=== PATIENT | female | born 1955 ===

== ENCOUNTER 2018-06-26 13:33 | Emergency (ER) | payer BC ==
[~2018-06-26] VITALS: Ht 165.1 cm; Wt 98.4 kg
[~2018-06-26 13:33] MED LIST: ALBU90OI6 INH; CONTRAVE ER 8-1 EACH PO; FLUSAL2505 INH; HYDCHL25 PO; LOSA50 PO; METO10 PO; MONT10T PO; PANT40 PO; POTA8 PO; PRAV20 PO; RANI150 PO; Robaxin500 MG PO; TIOT18 INH; TRAZ150T57 PO
[2018-06-26 15:24] LABS: BASOPHILS ABSOLUTE AUTO 0.04 K/mm3 (0.00-0.23); BASOPHILS PERCENT AUTO 0 % (0-2); EOSINOPHILS ABSOLUTE AUTO 0.06 K/mm3 (0.00-0.68); EOSINOPHILS PERCENT AUTO 0 % (0-6); Hemoglobin 14.2 g/dL (11.5-16.0); IMMATURE GRAN ABSOLUTE AUTO 0.05 K/mm3 (0.00-0.10); IMMATURE GRAN PERCENT AUTO 0 % (0-1); LYMPHOCYTES ABSOLUTE AUTO 3.31 K/mm3 (0.84-5.20); LYMPHOCYTES PERCENT AUTO 22 % (21-46); MONOCYTES ABSOLUTE AUTO 1.37 K/mm3 (0.16-1.47); MONOCYTES PERCENT AUTO 9 % (4-13); Mean Corpuscular HGB 31.8 pg (26.0-34.0); Mean Corpuscular HGB Conc 31.6 g/dL (31.5-36.5); Mean Corpuscular Volume 101 fL (80-100); Mean Platelet Volume 9.1 fL (9.1-12.4); NEUTROPHILS ABSOLUTE AUTO 10.26 K/mm3 (1.96-9.15); NEUTROPHILS PERCENT AUTO 68 % (41-73); Platelet Count 384 K/mm3 (150-400); RDW Coefficient Variation 13.1 % (11.7-14.2); RDW Standard Deviation 48.9 fL (35.1-46.3); Red Blood Cell Count 4.46 M/mm3 (3.80-5.20); White Blood Cell Count 15.09 K/mm3 (4.00-11.30)
[2018-06-26 15:44] LABS: Alanine Aminotransfer (ALT/SGP 29 U/L (12-78); Albumin, Blood 3.1 g/dL (3.4-5.0); Albumin/Globulin Ratio 0.9 (0.8-1.8); Alk Phos 67 U/L (50-136); Anion Gap 6 mmol/L (6-16); Aspartate Aminotrans (AST/SGOT 16 U/L (12-37); Bilirubin, Total 0.3 mg/dL (0.1-1.0); Blood Urea Nitrogen 21 mg/dL (8-24); CO2, Blood 33 mmol/L (21-32); Calcium, Blood 8.7 mg/dL (8.5-10.1); Chloride, Blood 102 mmol/L (98-108); Creatinine, Blood 0.96 mg/dL (0.40-1.00); Globulin, Blood 3.3 g/dL (2.2-4.0); Glomerular Filtration Rate >60 (60-); Glucose, Blood 106 mg/dL (70-99); Potassium, Blood 3.8 mmol/L (3.5-5.5); Sodium, Blood 141 mmol/L (136-145); Total Protein, Blood 6.4 g/dL (6.4-8.2)
[2018-06-26] MEDS ORDERED: Prednisone20 MG PO (16:37)
== END 2018-06-26 16:58 | disposition home or self-care (01) ==
LOC: ER 13:33
PROVIDERS: Physician Assistant
DX: J45.909 Unspecified asthma, uncomplicated (principal); Z88.8 Allergy status to other drugs, medicaments and biological substances; Z91.048 Other nonmedicinal substance allergy status; Z79.899 Other long term (current) drug therapy; J44.9 Chronic obstructive pulmonary disease, unspecified; Z79.52 Long term (current) use of systemic steroids; Z87.891 Personal history of nicotine dependence
CPT/HCPCS: 36415; 71046; 80053; 85025; 93005; 93010; 99284-25

== ENCOUNTER 2018-06-30 11:11 | Observation (INO) | payer BC ==
[~2018-06-30] VITALS: Ht 165.1 cm; Wt 107.0 kg
[~2018-06-30 11:11] MED LIST changes: +Prednisone20 MG PO
[2018-06-30 12:12] LABS: BASOPHILS ABSOLUTE AUTO 0.02 K/mm3 (0.00-0.23); BASOPHILS PERCENT AUTO 0 % (0-2); EOSINOPHILS PERCENT AUTO 0 % (0-6); Hematocrit 46.5 % (33.0-51.0); Hemoglobin 14.8 g/dL (11.5-16.0); IMMATURE GRAN ABSOLUTE AUTO 0.07 K/mm3 (0.00-0.10); IMMATURE GRAN PERCENT AUTO 0 % (0-1); LYMPHOCYTES ABSOLUTE AUTO 0.59 K/mm3 (0.84-5.20); LYMPHOCYTES PERCENT AUTO 4 % (21-46); MONOCYTES ABSOLUTE AUTO 0.38 K/mm3 (0.16-1.47); MONOCYTES PERCENT AUTO 2 % (4-13); Mean Corpuscular HGB 31.9 pg (26.0-34.0); Mean Corpuscular HGB Conc 31.8 g/dL (31.5-36.5); Mean Corpuscular Volume 100 fL (80-100); Mean Platelet Volume 9.1 fL (9.1-12.4); NEUTROPHILS ABSOLUTE AUTO 15.05 K/mm3 (1.96-9.15); NEUTROPHILS PERCENT AUTO 93 % (41-73); Platelet Count 374 K/mm3 (150-400); Red Blood Cell Count 4.64 M/mm3 (3.80-5.20); White Blood Cell Count 16.11 K/mm3 (4.00-11.30)
[2018-06-30 12:23] LABS: Alanine Aminotransfer (ALT/SGP 32 U/L (12-78); Albumin, Blood 3.3 g/dL (3.4-5.0); Alk Phos 74 U/L (50-136); Anion Gap 8 mmol/L (6-16); Aspartate Aminotrans (AST/SGOT 17 U/L (12-37); Bilirubin, Total 0.6 mg/dL (0.1-1.0); Blood Urea Nitrogen 13 mg/dL (8-24); Bun/Creatinine Ratio 17.2 (12.0-20.0); CO2, Blood 31 mmol/L (21-32); Calcium, Blood 8.4 mg/dL (8.5-10.1); Chloride, Blood 100 mmol/L (98-108); Creatinine, Blood 0.75 mg/dL (0.40-1.00); Globulin, Blood 3.3 g/dL (2.2-4.0); Glomerular Filtration Rate >60 (60-); Glucose, Blood 139 mg/dL (70-99); Sodium, Blood 139 mmol/L (136-145); Total Protein, Blood 6.6 g/dL (6.4-8.2); Troponin I 0.058 ng/mL (0.000-0.040)
[2018-06-30] MEDS ORDERED: ALBU3IS INH (15:39)
[2018-07-01 05:01] LABS: BASOPHILS ABSOLUTE AUTO 0.01 K/mm3 (0.00-0.23); BASOPHILS PERCENT AUTO 0 % (0-2); EOSINOPHILS PERCENT AUTO 0 % (0-6); Hematocrit 43.2 % (33.0-51.0); IMMATURE GRAN ABSOLUTE AUTO 0.04 K/mm3 (0.00-0.10); IMMATURE GRAN PERCENT AUTO 0 % (0-1); LYMPHOCYTES ABSOLUTE AUTO 1.44 K/mm3 (0.84-5.20); LYMPHOCYTES PERCENT AUTO 14 % (21-46); MONOCYTES ABSOLUTE AUTO 0.83 K/mm3 (0.16-1.47); MONOCYTES PERCENT AUTO 8 % (4-13); Mean Corpuscular HGB 31.9 pg (26.0-34.0); Mean Corpuscular HGB Conc 32.4 g/dL (31.5-36.5); Mean Corpuscular Volume 98 fL (80-100); Mean Platelet Volume 9.3 fL (9.1-12.4); NEUTROPHILS ABSOLUTE AUTO 7.87 K/mm3 (1.96-9.15); NEUTROPHILS PERCENT AUTO 77 % (41-73); Platelet Count 318 K/mm3 (150-400); RDW Coefficient Variation 12.7 % (11.7-14.2); RDW Standard Deviation 46.5 fL (35.1-46.3); Red Blood Cell Count 4.39 M/mm3 (3.80-5.20); White Blood Cell Count 10.19 K/mm3 (4.00-11.30)
[2018-07-01 05:26] LABS: Anion Gap 8 mmol/L (6-16); Blood Urea Nitrogen 18 mg/dL (8-24); Bun/Creatinine Ratio 21.1 (12.0-20.0); CO2, Blood 32 mmol/L (21-32); Calcium, Blood 8.5 mg/dL (8.5-10.1); Chloride, Blood 100 mmol/L (98-108); Creatinine, Blood 0.85 mg/dL (0.40-1.00); Glomerular Filtration Rate >60 (60-); Glucose, Blood 132 mg/dL (70-99); Potassium, Blood 3.9 mmol/L (3.5-5.5); Sodium, Blood 140 mmol/L (136-145)
--- NOTE | 2018-07-01 07:15 | NUR ---
complaine of sob but no chest pain, call light in reach, tele proadcasting, saline locked, room air, sbar report given to returning day shift
--- NOTE | 2018-07-01 18:09 | NUR ---
OXYGEN SATURATION THIS RN HAD PT AMBULATE IN FRIEDMAN 150 FEET ON ROOM AIR AND PT'S OXYGEN SATURATION STAYED BETWEEN 92-94%. NO SHORTNESS OF BREATH NOTED WHEN PT AMBULATED. PT CONTINUES TO BE ON ROOM AIR WITH NO COMPLAINTS. CALL LIGHT IN REACH.
--- NOTE | 2018-07-01 18:16 | NUR ---
SHIFT SUMMARY PT HAD FIRST PART OF STRESS TEST THIS AFTERNOON (RESTING) AND WILL HAVE THE 2ND PART TOMORROW AFTERNOON. PT HAS HAD NO COMPLAINTS OF CHEST PAIN THIS SHIFT. PT CONTINUES TO BE ON ROOM AIR AND HAS BEEN BREATHING EASIER THIS EVENING WITH EXERTION. PT AMBULATED IN HALLS ON ROOM AIR AND NO CHANGES WITH HER OXYGEN SATURATION. PT INDEPENDENT IN ROOM. NO ACUTE CHANGES THIS SHIFT. WILL CONTINUE TO MONITOR AND REPORT TO ONCOMING RN. CALL LIGHT IN REACH.
--- NOTE | 2018-07-02 07:17 | NUR ---
a+o able to make needs known, NPO since 399 for procedure, saline locked, room air, able to ambulate to bathroom, walking rounds completed with oncoming day shift
[2018-07-02] MEDS ORDERED: GABA300 PO (08:58)
[2018-07-02] MEDS ORDERED: CHOL10002 PO (08:59)
--- NOTE | 2018-07-02 14:36 | NUR ---
lexiscan 0.4mg given iv @1430. MAR WAS NOT POPULATING MEDICATIONS PULLED IN [facility].
--- NOTE | 2018-07-02 17:14 | NUR ---
SHIFT SUMMARY DR. SHAFFER WANTS TO KEEP PT OVERNIGHT. POSSIBLE DC TOMORROW. PT STATES HER BREATHING "FEELS BETTER" THAN THIS MORNING. NO OTHER CHANGES IN ASSESSMENT AT THIS TIME. VSS. PT HAS STRESS TEST COMPLETED TODAY. WILL CONTINUE TO MONITOR PT UNTIL TURNOVER IS COMPLETE. PT AWARE OF PLAN OF CARE.
--- NOTE | 2018-07-03 07:17 | NUR ---
ready to go home, up adlib, no chest pain, call light in reach, saline locked, room air, walking rounds completed with day staff
[2018-07-03] MEDS ORDERED: DULERA 200 MCG/13 GM INH (08:53)
[2018-07-03] MEDS ORDERED: Micro-K10 MEQ PO (08:57)
[2018-07-03] MEDS ORDERED: ACET325 PO (09:04)
[2018-07-03] MEDS ORDERED: PRED20 (09:04)
[2018-07-03] MEDS ORDERED: ASPI81CH PO (09:04)
[2018-07-03] MEDS ORDERED: GUAI600T33 PO (09:05)
[2018-07-03] MEDS ORDERED: AMLO5 PO (09:05)
[2018-07-03] MEDS ORDERED: FURO20 PO (09:05)
--- NOTE | 2018-07-03 10:52 | NUR ---
1002 PT DISCHARGED HOME VIA PERSONAL VEHICLE. ESCORTED TO FACILITY ENTRANCE VIA VOLUNTEER W/C ESCORT. IV REMOVED. D/C PAPERWORK REVIEWED WITH PT AND COPY PROVIDED. NEW RX FAXED TO [facility] PER PT REQUEST. NO NEW CHANGES OR CONCERNS.
== END 2018-07-03 10:02 | disposition home or self-care (01) ==
LOC: ER 11:11 → MEDS 11:12 → ER 13:30 → MEDS 13:30 → ENPENDDIS 07-03 08:30 → MEDS 07-03 10:02
PROVIDERS: Emergency Medicine; ADMIT Internal Medicine
DX: I24.9 Acute ischemic heart disease, unspecified (principal); J44.1 Chronic obstructive pulmonary disease with (acute) exacerbation; I11.0 Hypertensive heart disease with heart failure; I50.9 Heart failure, unspecified; E78.5 Hyperlipidemia, unspecified; E66.9 Obesity, unspecified; Z87.01 Personal history of pneumonia (recurrent); Z87.891 Personal history of nicotine dependence; Z88.8 Allergy status to other drugs, medicaments and biological substances; Z68.35 Body mass index [BMI] 35.0-35.9, adult
CPT/HCPCS: 36415; 71046; 78452; 80048; 80053; 83880; 84443; 84484; 85025; 93005; 93010; 93017; 93306; 94640; 94664; 94667; 94760; 94761; 94762; 96372; 96374; 96376; 98960; 99285-25; A9500; G0378; J0706; J1650; J1940; J2785

== ENCOUNTER 2019-01-26 07:58 | Day surgery (SDC) | payer BC ==
[~2019-01-26 07:58] MED LIST changes: +ACET325 PO; +ALBU3IS INH; +AMLO5 PO; +ASPI81CH PO; +CHOL10002 PO; +DULERA 200 MCG/13 GM INH; +FURO20 PO; +GABA300 PO; +GUAI600T33 PO; +Micro-K10 MEQ PO; +PRED20
[2019-02-06 10:01] LABS: Performing Lab SYMBIODX; Test Name FISH HER2
[2019-04-06] MEDS ORDERED: OMEPRAZOLE20 MG PO (13:47)
[2019-04-06] MEDS ORDERED: DILT180 PO (13:48)
[2019-04-06] MEDS ORDERED: HYDCHL25 PO (13:48)
[2019-04-06] MEDS ORDERED: MELO7.5 PO (13:49)
[2019-04-06] MEDS ORDERED: CITA20 PO (13:49)
[2019-04-06] MEDS ORDERED: TIOT18 INH (13:49)
== END 2019-01-26 22:57 | disposition home or self-care (01) ==
LOC: MOI MAM 07:58
PROVIDERS: Internal Medicine
DX: C50.411 Malignant neoplasm of upper-outer quadrant of right female breast (principal)
CPT/HCPCS: 19083; 77065; 88305; 88360; 88374; A4648; G0279

== ENCOUNTER 2019-04-03 08:04 | Day surgery (SDC) | payer BC ==
[2019-04-06] MEDS ORDERED: OMEPRAZOLE20 MG PO (13:47)
[2019-04-06] MEDS ORDERED: DILT180 PO (13:48)
[2019-04-06] MEDS ORDERED: HYDCHL25 PO (13:48)
[2019-04-06] MEDS ORDERED: TIOT18 INH (13:49)
[2019-04-06] MEDS ORDERED: MELO7.5 PO (13:49)
[2019-04-06] MEDS ORDERED: CITA20 PO (13:49)
== END 2019-04-03 22:53 | disposition home or self-care (01) ==
LOC: MOI US 08:04
DX: C50.411 Malignant neoplasm of upper-outer quadrant of right female breast (principal)
CPT/HCPCS: 19285; 77065

== ENCOUNTER 2019-04-10 08:16 | Day surgery (SDC) | payer BC ==
[~2019-04-10] VITALS: Ht 165.1 cm; Wt 94.1 kg
[~2019-04-10 08:16] MED LIST changes: +CITA20 PO; +DILT180 PO; +MELO7.5 PO; +OMEPRAZOLE20 MG PO
--- NOTE | 2019-04-10 09:42 | NUR ---
Ambulatory in Day Surgery. Surgical site prepped with 2% Chlorhexidine cloth wipe. Patient reports completing Chlorhexadine shower X2 prior to admission to hospital. Patient States Post-Procedure ride home has been arranged. Pre-Op teaching done. Pt verbalizes understanding. Patient confirms NPO status and agrees with scheduled surgery. History, Chart, Medications and Allergies reviewed before start of procedure. Lungs clear T/O to Auscultation.
--- NOTE | 2019-04-10 09:43 | NUR ---
TO [employer] FOR PROCEDURE
--- NOTE | 2019-04-10 10:17 | NUR ---
"DAY SURGERY RN | REPORT FROM CATRACHO MEADOWS. [facility]."
--- NOTE | 2019-04-10 11:33 | NUR ---
"DAY SURGERY RN | TO OR PATIENT WAS UP TO VOID. NO ISSUES. TO OR."
--- NOTE | 2019-04-10 13:43 | NUR ---
TOOK CARE OF PT TILL JEANNE GABRIEL TOOK REPORT.
--- NOTE | 2019-04-10 14:20 | NUR ---
RECIEVED PATIENT AND REPORT FROM ZAINA GABRIEL RN. PATIENT NEEDING REMINDERS TO TAKE DEEP BREATHS TO KEEP SAT ABOVE 90% SAT GOES TO 93-95 WITH DEEP BREATHS ON ROOM AIR BUT DROPS PATIENT RELAXES
--- NOTE | 2019-04-10 14:55 | NUR ---
visitors brought to bedside patient reminded to deep breathe and cough and clear
--- NOTE | 2019-04-10 14:56 | NUR ---
patients sat continues to drop below 90 % and she continues to need reminders to deep breath. placed on 2 liters 02 at 1458
--- NOTE | 2019-04-10 15:03 | NUR ---
RECEIVED REPORT AND ASSUMED CARE OF PT FROM FADY MEADOWS. PT WHEEZING. ENCOURAGED DBC. SHE RECEIVED A UDN TX IN PACU. LET HER USE HER INHALER. WILL CONTINUE TO MONITOR.
--- NOTE | 2019-04-10 15:49 | NUR ---
PATIENTS SAT HAS MAINTAINED ABOVE 90 PERCENT PATINET READY TO GO HOME, GIVNE CLOTHES AND PATEIENT DRESSED AND IV DISCONTINUED AND PATIENT WHEELED OUT IN WC TO PATIENT ADMISSION INTERENCE AND ASSISTED INTO CAR WITH ALL BELONGINGS.
== END 2019-04-10 23:38 | disposition home or self-care (01) ==
LOC: NM 08:16 → ORSCMMR 08:16 → NM 09:30
PROVIDERS: Surgery
PROC: 07B50ZX Excision of Right Axillary Lymphatic, Open Approach, Diagnostic (ICD-10-PCS; principal; 2019-04-10 10:30)
PROC: 0HBT0ZZ Excision of Right Breast, Open Approach (ICD-10-PCS; principal; 2019-04-10 10:30)
DX: C50.411 Malignant neoplasm of upper-outer quadrant of right female breast (principal); Z17.0 Estrogen receptor positive status [ER+]; C77.3 Secondary and unspecified malignant neoplasm of axilla and upper limb lymph nodes; I10 Essential (primary) hypertension; I50.9 Heart failure, unspecified; J44.9 Chronic obstructive pulmonary disease, unspecified; Z87.891 Personal history of nicotine dependence; Z79.899 Other long term (current) drug therapy; E66.9 Obesity, unspecified; Z68.34 Body mass index [BMI] 34.0-34.9, adult
CPT/HCPCS: 38792; 76098; 88307; A9270-GY; A9520; J0690; J1100; J2250; J2405; J2704; J3010; J7120; Q9968

== ENCOUNTER 2019-05-06 06:57 | Day surgery (SDC) | payer BC ==
[~2019-05-06] VITALS: Ht 165.1 cm; Wt 95.9 kg
[2019-05-06] MEDS ORDERED: FLUT1DIS5 INH (07:25)
--- NOTE | 2019-05-06 07:34 | NUR ---
PT ADMITTED TO [facility]. AGREES WITH PLANNED SURGERY. LUNG SOUNDS DIMINSHED T/O. PT STATES SHE IS FEELING AT BASELINE FOR RESPIRATORY STATUS. C/O CHRONIC LEFT HIP PAIN WITH AMBULATION.
--- NOTE | 2019-05-06 09:23 | NUR ---
IV SITE IN RIGHT FA INFUSING WELL BUT PATIENT NOT RESPONDING APPROPRIATELY TO INDUCTION MEDS, IV SITE CHANGED
--- NOTE | 2019-05-06 10:44 | NUR ---
"DAY SURGERY RN | DISCHARGE VSS. A/O. DENIES PAIN AND NAUSEA. NO ISSUES. SITE C/D/I. DISCHARGE INSTRUCTIONS AND RX GIVEN TO PATIENT WITH FAMILY PRESENT. TAKEN IN WHEELCHAIR TO FRONT ENTRANCE BY VOLUNTEER."
== END 2019-05-06 23:00 | disposition home or self-care (01) ==
LOC: ORSCMMR 06:57 → ORD 08:30 → ORSCMMR 23:00
PROVIDERS: Surgery
PROC: 0JH60WZ Insertion of Totally Implantable Vascular Access Device into Chest Subcutaneous Tissue and Fascia, Open Approach (ICD-10-PCS; principal; 2019-05-06 08:30)
DX: C50.919 Malignant neoplasm of unspecified site of unspecified female breast (principal); Z17.0 Estrogen receptor positive status [ER+]; J44.9 Chronic obstructive pulmonary disease, unspecified; J45.909 Unspecified asthma, uncomplicated; I10 Essential (primary) hypertension; E78.5 Hyperlipidemia, unspecified; K21.9 Gastro-esophageal reflux disease without esophagitis; Z79.899 Other long term (current) drug therapy; Z87.891 Personal history of nicotine dependence
CPT/HCPCS: 77001; C1788; J0690; J1100; J1642; J2250; J2405; J2704; J3010; J7120

== ENCOUNTER → 2019-06-08 | Outpatient (CLI) | payer BC ==
[~2019-06-08] MED LIST changes: +FLUT1DIS5 INH
[2019-06-08 10:24] LABS: BASOPHILS ABSOLUTE AUTO 0.07 K/mm3 (0.00-0.23); BASOPHILS PERCENT AUTO 1 % (0-2); EOSINOPHILS ABSOLUTE AUTO 0.01 K/mm3 (0.00-0.68); EOSINOPHILS PERCENT AUTO 0 % (0-6); Hematocrit 37.8 % (33.0-51.0); Hemoglobin 12.2 g/dL (11.5-16.0); IMMATURE GRAN PERCENT AUTO 3 % (0-1); LYMPHOCYTES ABSOLUTE AUTO 1.11 K/mm3 (0.84-5.20); LYMPHOCYTES PERCENT AUTO 10 % (21-46); MONOCYTES ABSOLUTE AUTO 0.82 K/mm3 (0.16-1.47); MONOCYTES PERCENT AUTO 7 % (4-13); Mean Corpuscular HGB 32.5 pg (26.0-34.0); Mean Corpuscular HGB Conc 32.3 g/dL (31.5-36.5); Mean Corpuscular Volume 101 fL (80-100); Mean Platelet Volume 9.5 fL (9.1-12.4); NEUTROPHILS ABSOLUTE AUTO 9.02 K/mm3 (1.96-9.15); NEUTROPHILS PERCENT AUTO 80 % (41-73); NRBC ABSOLUTE 0.03 K/mm3 (0.00-0.02); NRBC Auto 0.3 /100 WBC (0.0-0.2); Platelet Count 312 K/mm3 (150-400); RDW Coefficient Variation 17.2 % (11.7-14.2); RDW Standard Deviation 59.2 fL (35.1-46.3); Red Blood Cell Count 3.75 M/mm3 (3.80-5.20); White Blood Cell Count 11.33 K/mm3 (4.00-11.30)
[2019-06-08 10:40] LABS: Alanine Aminotransfer (ALT/SGP 20 U/L (12-78); Albumin, Blood 3.1 g/dL (3.4-5.0); Alk Phos 85 U/L (50-136); Anion Gap 4 mmol/L (6-16); Aspartate Aminotrans (AST/SGOT 15 U/L (12-37); Bilirubin, Total 0.4 mg/dL (0.1-1.0); Blood Urea Nitrogen 7 mg/dL (8-24); Bun/Creatinine Ratio 8.7 (12.0-20.0); CO2, Blood 33 mmol/L (21-32); Calcium, Blood 8.9 mg/dL (8.5-10.1); Chloride, Blood 102 mmol/L (98-108); Creatinine, Blood 0.81 mg/dL (0.40-1.00); Glomerular Filtration Rate >60 (60-); Glucose, Blood 113 mg/dL (70-99); Potassium, Blood 3.4 mmol/L (3.5-5.5); Sodium, Blood 139 mmol/L (136-145); Total Protein, Blood 6.1 g/dL (6.4-8.2)
== END | disposition home or self-care (01) ==
LOC: LAB 09:55 → LAB SHORT 09:55
PROVIDERS: Internal Medicine Hematology & Oncology
DX: C50.919 Malignant neoplasm of unspecified site of unspecified female breast (principal)
CPT/HCPCS: 80053; 85025

== ENCOUNTER 2020-03-27 16:48 | Emergency (ER) | payer BC ==
[~2020-03-27] VITALS: Ht 165.1 cm; Wt 87.1 kg
[2020-03-27] MEDS ORDERED: DERMACINRX5000 UNI1 PO (17:11)
[2020-03-27] MEDS ORDERED: ANASTROZOLE 1MG TAB (17:15)
[2020-03-27] MEDS ORDERED: ANASTROZOLE 1MG TAB PO (17:16)
== END 2020-03-27 19:44 | disposition home or self-care (01) ==
LOC: ER 16:48
DX: S42.292A Other displaced fracture of upper end of left humerus, initial encounter for closed fracture (principal); S43.015A Anterior dislocation of left humerus, initial encounter; J44.9 Chronic obstructive pulmonary disease, unspecified; I10 Essential (primary) hypertension; K21.9 Gastro-esophageal reflux disease without esophagitis; Z88.8 Allergy status to other drugs, medicaments and biological substances; Z79.899 Other long term (current) drug therapy; Z87.891 Personal history of nicotine dependence; W01.0XXA Fall on same level from slipping, tripping and stumbling without subsequent striking against object, initial encounter; Y92.000 Kitchen of unspecified non-institutional (private) residence as the place of occurrence of the external cause
CPT/HCPCS: 23655; 36415; 73020; 99283-25; A9270; J2704; J7030

== ENCOUNTER 2020-09-29 20:02 | Emergency (ER) | payer BC ==
[~2020-09-29] VITALS: Ht 165.1 cm; Wt 90.7 kg
[~2020-09-29 20:02] MED LIST changes: +ANASTROZOLE 1MG TAB; +ANASTROZOLE 1MG TAB PO; +DERMACINRX5000 UNI1 PO
[2020-09-29 20:22] LABS: BASOPHILS ABSOLUTE AUTO 0.06 K/mm3 (0.00-0.23); BASOPHILS PERCENT AUTO 1 % (0-2); EOSINOPHILS ABSOLUTE AUTO 0.11 K/mm3 (0.00-0.68); EOSINOPHILS PERCENT AUTO 1 % (0-6); Hematocrit 41.6 % (33.0-51.0); Hemoglobin 14.3 g/dL (11.5-16.0); IMMATURE GRAN ABSOLUTE AUTO 0.05 K/mm3 (0.00-0.10); IMMATURE GRAN PERCENT AUTO 0 % (0-1); LYMPHOCYTES ABSOLUTE AUTO 2.69 K/mm3 (0.84-5.20); LYMPHOCYTES PERCENT AUTO 23 % (21-46); MONOCYTES ABSOLUTE AUTO 1.45 K/mm3 (0.16-1.47); MONOCYTES PERCENT AUTO 12 % (4-13); Mean Corpuscular HGB Conc 34.4 g/dL (31.5-36.5); Mean Corpuscular Volume 102 fL (80-100); Mean Platelet Volume 8.8 fL (9.1-12.4); NEUTROPHILS ABSOLUTE AUTO 7.49 K/mm3 (1.96-9.15); NEUTROPHILS PERCENT AUTO 63 % (41-73); Platelet Count 328 K/mm3 (150-400); RDW Coefficient Variation 13.6 % (11.7-14.2); RDW Standard Deviation 51.8 fL (35.1-46.3); Red Blood Cell Count 4.08 M/mm3 (3.80-5.20); White Blood Cell Count 11.85 K/mm3 (4.00-11.30)
[2020-09-29 20:36] LABS: Alanine Aminotransfer (ALT/SGP 34 U/L (12-78); Albumin, Blood 3.6 g/dL (3.4-5.0); Albumin/Globulin Ratio 1.2 (0.8-1.8); Alk Phos 74 U/L (50-136); Anion Gap 9 mmol/L (6-16); Aspartate Aminotrans (AST/SGOT 37 U/L (12-37); Bilirubin, Total 0.3 mg/dL (0.1-1.0); Blood Urea Nitrogen 9 mg/dL (8-24); Bun/Creatinine Ratio 12.6 (12.0-20.0); CO2, Blood 28 mmol/L (21-32); Calcium, Blood 8.3 mg/dL (8.5-10.1); Chloride, Blood 95 mmol/L (98-108); Creatinine, Blood 0.72 mg/dL (0.40-1.00); Globulin, Blood 3.1 g/dL (2.2-4.0); Glomerular Filtration Rate >60 (60-); Glucose, Blood 115 mg/dL (70-99); Potassium, Blood 3.7 mmol/L (3.5-5.5); Sodium, Blood 132 mmol/L (136-145); Total Protein, Blood 6.7 g/dL (6.4-8.2); Troponin I <0.015 ng/mL (0.000-0.040)
[2020-09-29 20:38] LABS: International Normalized Ratio 0.91; Prothrombin Time Results 9.8 Sec (9.7-11.5)
[2020-09-29 20:54] LABS: Source, Urine Clean Catch
[2020-09-29 20:58] LABS: Bilirubin, Urine Neg (Neg); Blood, Urine 2+ (Neg); Glucose Qualitative, Urine Neg (Neg); Ketones, Urine Neg (Neg); Leukocyte Esterase, Urine Neg (Neg); Nitrite, Urine Neg (Neg); Protein, Urine 1+ (Neg); Urobilinogen, Urine NORM (Normal)
[2020-09-29 21:08] LABS: Ethanol (Alcohol), Blood, Med 380 mg/dL
[2020-09-29 21:46] LABS: Appearance, Urine Clear (Clear); Color, Urine Yellow (P-Yellow)
[2020-09-29 21:48] LABS: Bacteria Rare /hpf; Squamous Epithelial Cells Rare /hpf (Few); White Blood Cells, Urine 0-2 /hpf (0-5)
[2020-09-29 21:52] LABS: U Amphetamine Screen Not Detected; U Barbituate Screen Not Detected; U Benzodiazapine Screen Not Detected; U Buprenorphine Screen Not Detected; U Cannabinoids Screen Not Detected; U Cocaine Screen Not Detected; U Methadone Screen Not Detected; U Methamphetamine Screen Not Detected; U Opiates Screen Not Detected; U Oxycodone Screen Not Detected; U Phencyclidine Screen Not Detected; U Propoxyphene Screen Not Detected
[2020-09-29 23:25] LABS: Influenza A, PCR NEGATIVE (NEGATIVE); Influenza B, PCR NEGATIVE (NEGATIVE); Resp Syncytial Virus, PCR NEGATIVE (NEGATIVE); SARS-Cov-2 (COVID-19) PCR, MMC NEGATIVE (NEGATIVE)
== END 2020-09-30 00:10 | disposition home or self-care (01) ==
LOC: ER 20:02
PROVIDERS: Emergency Medicine
DX: S00.03XA Contusion of scalp, initial encounter (principal); F10.129 Alcohol abuse with intoxication, unspecified; Z88.8 Allergy status to other drugs, medicaments and biological substances; Z79.899 Other long term (current) drug therapy; W18.30XA Fall on same level, unspecified, initial encounter; Z20.822 Contact with and (suspected) exposure to COVID-19
CPT/HCPCS: 0241U; 70450; 71045; 72125; 80053; 81001; 83605; 83880; 84145; 84484; 85025; 85610; 85730; 86850; 86900; 86901; 93005; 93010; 99285-25; G0480; J7120; P9612

== ENCOUNTER 2020-12-25 09:33 | Emergency (ER) | payer BC ==
[~2020-12-25] VITALS: Ht 165.1 cm; Wt 83.9 kg
[2020-12-25] MEDS ORDERED: HYDR1TAB94 PO (11:06)
[2020-12-25] MEDS ORDERED: CRUTCH2 XX (11:07)
== END 2020-12-25 13:36 | disposition home or self-care (01) ==
LOC: ER 09:33
DX: S90.522A Blister (nonthermal), left ankle, initial encounter (principal); S90.822A Blister (nonthermal), left foot, initial encounter; Z88.8 Allergy status to other drugs, medicaments and biological substances; Z79.899 Other long term (current) drug therapy; W01.0XXA Fall on same level from slipping, tripping and stumbling without subsequent striking against object, initial encounter; Y92.009 Unspecified place in unspecified non-institutional (private) residence as the place of occurrence of the external cause
CPT/HCPCS: 27818; 73600; 73610; 96374-59; 99152; 99284-25; J2704; J3010; J7030

== ENCOUNTER 2021-01-03 11:29 | Inpatient (IN) | payer BC ==
[~2021-01-03] VITALS: Ht 165.1 cm; Wt 83.9 kg
[~2021-01-03 11:29] MED LIST changes: +CRUTCH2 XX; +HYDR1TAB94 PO
[2021-01-03 13:18] LABS: BASOPHILS ABSOLUTE AUTO 0.04 K/mm3 (0.00-0.23); BASOPHILS PERCENT AUTO 0 % (0-2); EOSINOPHILS ABSOLUTE AUTO 0.07 K/mm3 (0.00-0.68); EOSINOPHILS PERCENT AUTO 1 % (0-6); Hematocrit 36.9 % (33.0-51.0); Hemoglobin 12.3 g/dL (11.5-16.0); IMMATURE GRAN ABSOLUTE AUTO 0.04 K/mm3 (0.00-0.10); IMMATURE GRAN PERCENT AUTO 0 % (0-1); LYMPHOCYTES ABSOLUTE AUTO 0.92 K/mm3 (0.84-5.20); LYMPHOCYTES PERCENT AUTO 9 % (21-46); MONOCYTES ABSOLUTE AUTO 1.16 K/mm3 (0.16-1.47); MONOCYTES PERCENT AUTO 11 % (4-13); Mean Corpuscular HGB 34.5 pg (26.0-34.0); Mean Corpuscular HGB Conc 33.3 g/dL (31.5-36.5); Mean Corpuscular Volume 103 fL (80-100); Mean Platelet Volume 8.7 fL (9.1-12.4); NEUTROPHILS ABSOLUTE AUTO 8.62 K/mm3 (1.96-9.15); NEUTROPHILS PERCENT AUTO 79 % (41-73); Platelet Count 469 K/mm3 (150-400); RDW Coefficient Variation 12.5 % (11.7-14.2); RDW Standard Deviation 47.3 fL (35.1-46.3); Red Blood Cell Count 3.57 M/mm3 (3.80-5.20); White Blood Cell Count 10.85 K/mm3 (4.00-11.30)
[2021-01-03 13:39] LABS: Alanine Aminotransfer (ALT/SGP 27 U/L (12-78); Albumin, Blood 3.1 g/dL (3.4-5.0); Albumin/Globulin Ratio 0.9 (0.8-1.8); Alk Phos 66 U/L (50-136); Anion Gap 4 mmol/L (6-16); Aspartate Aminotrans (AST/SGOT 11 U/L (12-37); Bilirubin, Total 0.6 mg/dL (0.1-1.0); Blood Urea Nitrogen 10 mg/dL (8-24); Bun/Creatinine Ratio 12.8 (12.0-20.0); CO2, Blood 33 mmol/L (21-32); Calcium, Blood 9.6 mg/dL (8.5-10.1); Chloride, Blood 97 mmol/L (98-108); Creatinine, Blood 0.78 mg/dL (0.40-1.00); Globulin, Blood 3.6 g/dL (2.2-4.0); Glomerular Filtration Rate >60 (60-); Glucose, Blood 108 mg/dL (70-99); Potassium, Blood 3.2 mmol/L (3.5-5.5); Sodium, Blood 134 mmol/L (136-145); Total Protein, Blood 6.7 g/dL (6.4-8.2)
[2021-01-03] MEDS ORDERED: ANASTROZOLE1 M4 PO (13:55)
[2021-01-03] MEDS ORDERED: BUDESONIDE0.5 MG/25 NEB (13:55)
[2021-01-03] MEDS ORDERED: SPIRIVA RESPIMAT4 G3 INH (13:56)
[2021-01-03] MEDS ORDERED: POTA8 PO (13:56)
[2021-01-03] MEDS ORDERED: ZANTAC-360 (FAM20 MG PO (13:56)
[2021-01-03] MEDS ORDERED: PRAVASTATIN SOD40 MG PO (13:56)
[2021-01-03] MEDS ORDERED: OMEP20ER PO (13:57)
--- NOTE | 2021-01-03 16:02 | NUR ---
ARRIVED FROM ED VIA HENRY IBARRA, DENIES ANY NEED FOR PAIN MEDS AT THIS TIME, LLE ELEVATED ON PILLOWS, <3 SEC CAP REFILL ON LLE TOES, SPLINT AND JAIRO WRAP IN PLACE ON LLE, ABLE TO WIGGLE LLE TOES, NPO FOR NOW.
--- NOTE | 2021-01-03 17:34 | NUR ---
RESTING IN BED, DENIES ANY NEED FOR PAIN MEDS AT THIS TIME, PT WAITING TO GO TO THE OR, NO ACUTE CHANGES THIS SHIFT.
--- NOTE | 2021-01-04 04:09 | NUR ---
SHIFT SUMMARY POD 1 L ANKLE EXTERNAL FIXATION WITH WOUND VAC. DRESSING REMAINS CDI. PT HAD A SPINAL AND NOW HAS FULL SENSATION TO BLE. ABLE TO WIGGLE TOES TO LEFT FOOT AND CAP REFILL <3. PT DENIES N/T. PT IS NWB TO LLE. STRAIGHT CATH X1 EARLY THIS SHIFT. PT IS NOW SPONTANEOUSLY VOIDING USING BEDPAN. PT VERBALIZED SHE WANTS TO GET OOB NEXT TIME FOR BRP. PT REPORTS TOLERABLE PAIN TO LLE. ELEVATED ON PILLOWS. WEARS 2L O2 VIA NC AT NOC AT BASELINE. IVF INFUSING PER ORDERS. PT DID JARED PO UPON ARRIVAL TO UNIT. USES CALL LIGHT APPROPRIATELY.
[2021-01-04 04:30] LABS: BASOPHILS ABSOLUTE AUTO 0.01 K/mm3 (0.00-0.23); BASOPHILS PERCENT AUTO 0 % (0-2); EOSINOPHILS PERCENT AUTO 0 % (0-6); Hematocrit 33.3 % (33.0-51.0); Hemoglobin 11.1 g/dL (11.5-16.0); IMMATURE GRAN ABSOLUTE AUTO 0.04 K/mm3 (0.00-0.10); IMMATURE GRAN PERCENT AUTO 0 % (0-1); LYMPHOCYTES ABSOLUTE AUTO 0.37 K/mm3 (0.84-5.20); LYMPHOCYTES PERCENT AUTO 4 % (21-46); MONOCYTES ABSOLUTE AUTO 0.13 K/mm3 (0.16-1.47); MONOCYTES PERCENT AUTO 1 % (4-13); Mean Corpuscular HGB 34.7 pg (26.0-34.0); Mean Corpuscular HGB Conc 33.3 g/dL (31.5-36.5); Mean Corpuscular Volume 104 fL (80-100); NEUTROPHILS ABSOLUTE AUTO 10.04 K/mm3 (1.96-9.15); NEUTROPHILS PERCENT AUTO 95 % (41-73); Platelet Count 411 K/mm3 (150-400); RDW Coefficient Variation 12.2 % (11.7-14.2); RDW Standard Deviation 46.8 fL (35.1-46.3); White Blood Cell Count 10.59 K/mm3 (4.00-11.30)
[2021-01-04 04:54] LABS: Anion Gap 4 mmol/L (6-16); Blood Urea Nitrogen 13 mg/dL (8-24); Bun/Creatinine Ratio 15.2 (12.0-20.0); CO2, Blood 29 mmol/L (21-32); Calcium, Blood 8.5 mg/dL (8.5-10.1); Chloride, Blood 101 mmol/L (98-108); Creatinine, Blood 0.86 mg/dL (0.40-1.00); Glomerular Filtration Rate >60 (60-); Glucose, Blood 196 mg/dL (70-99); Potassium, Blood 4.6 mmol/L (3.5-5.5); Sodium, Blood 134 mmol/L (136-145)
[2021-01-04 05:33] LABS: BAND PERCENT MAN 1 % (0-8); BASOPHILS PERCENT MAN 0 % (0-2); EOSINOPHILS PERCENT MAN 0 % (0-6); MONOCYTES ABSOLUTE MAN 0.21 K/mm3 (0.16-1.47); MONOCYTES PERCENT MAN 2 % (4-13); NEUTROPHILS ABSOLUTE MAN 10.37 K/mm3 (1.96-9.15); SEG NEUTROPHILS PERCENT MAN 97 % (41-73); TOTAL CELLS COUNTED 100
--- NOTE | 2021-01-04 14:19 | NUR ---
SHIFT SUMMARY: POD 1 I&D LEFT ANKLE WITH EXTERNAL FIXATION AND WOUND VAC PATIENT IS ALERT AND ORIENTED X4. VS ARE WNL AND IS ON RA. PATIENT DENIES PAIN AT THIS TIME AND HAS DENIED PAIN MEDICATIONS. PATIENT IS ABLE TO MOVE LEG BUT IS NOT ABLE TO WIGGLE TOES. SHE IS ABLE TO FEEL TOUCH AND THE LEFT FOOT IS WARM AND PINK. PATIENT IS ABLE TO VOID AT BEDSIDE COMMODE. ENCOURAGING BOWEL SUPPORT FOR A BM. SHE WORKED WITH PT SO FAR TODAY AND IS A SBA WITH FWW AND GAIT BELT. PATIENT NEEDS TO BE REMINDED SHE IS NON WT BEARING ON THE LEFT LEG. SHE IS TOLERATING PO INTAKE. CALLS APPROPRIATELY. CALL LIGHT WITHIN REACH. PATIENT IS CURRENTLY SITTING IN CHAIR WITH LEGS ELEVATED. THE PLAN WILL BE TO EVENTUALLY DISCHARGE TO A SNF WHEN POSSIBLE.
--- NOTE | 2021-01-05 04:42 | NUR ---
SHIFT SUMMARY POD2 I&D, EXTERNAL FIXATION AND WOUND VACC PLACEMENT WITH DR. MATIAS. VSS. AOX4. PT HAS BEEN AMBULATING TO [facility] WITH 1 PERSON MIN ASSIST, FWW AND GB. TOLERATING MOVEMENT, REPORTS PAIN INTERMITTENTLY. PAIN MANAGED WITH 1 TAB NORCO. NWB ON LLE. PT REMAINS TO HAVE NUMBNESS ON LEFT TOP FOOT AND TOES BUT ABLE TO MOVE BLE. CAP REFILL WNL. VOIDS ADEQUATELY WITHOUT ANY DIFFICULTY. TOLERATING PO INTAKE. DENIES NAUSEA AND VOMITING. PT HAS PASSED FLATUS. CALL LIGHT WITHIN REACH. WILL PROVIDE REPORT TO ONCOMING AM NURSE.
--- NOTE | 2021-01-05 10:07 | NUR ---
LEFT TOE NUMBNESS PATIENT REPORTS NUMBNESS CONTINUES TO LEFT TOES. UNABLE TO MOVE TOES AT ALL. TOES ARE WARM, CAP REFILL BRISK, LESS THAN [address] LARSEN WHO ASKED ME TO SPEAK WITH ANESTHESIOLOGY TO GET THEIR OPINION. CALLED DR SILVA WHO STATED THE NERVE BLOCK MAY STILL BE IN EFFECT FOR UP TO 48 HOURS. 48 HOURS WILL BE AT 2000 TONIGHT 01/05. HE ASKED THE RN TO CALL HIM WITH AN UPDATE AT 1200 ON 01/06.
--- NOTE | 2021-01-05 10:18 | NUR ---
NOTIFIED DR LARSEN OF WHAT DR SILVA SAID REGARDING NERVE BLOCK AND NUMBNESS IN PREVIOUS NOTE.
--- NOTE | 2021-01-05 19:21 | NUR ---
SHIFT SUMMARY PATIENT ALERT AND ORIENTED THROUGHOUT SHIFT. TOLERATING REGULAR DIET AND FLUIDS. VOIDING WELL. LEFT LOWER ANKLE IN CAST AND EXTERNAL FIXATION. NWB. NUMBNESS AND UNABLE TO WIGGLE TOES. 01/06 DAY SHIFT RN TO CALL DR SILVA WITH UPDATE ON NUMBNESS. DR MATIAS PLANS TO CHANGE THE WOUND VAC 01/06. PAIN CONTROLLED WITH PO PAIN MEDS. PLAN FOR SNF DISCHARGE.
--- NOTE | 2021-01-06 05:49 | NUR ---
SHIFT SUMMARY POD2 EXTERNAL FIXATION, I&D AND WOUND VACC BY DR. MATIAS. PT REPORTS STARTING TO FEEL SENSATION ON L FOOT AT 1800 LAST NIGHT. PT WAS ABLE TO WIGGLE LEFT TOES AROUND 1900. DR. MATIAS CAME IN TO SEE PATIENT AND IS AWARE OF THESE CHANGES. HE PLAN TO DO A WOUND CARE DRESSING CHANGE TODAY. PT IS HAPPY ABOUT THIS PLAN. PT REPORTS L FOOT PAIN, PAIN MANAGED WITH 1 NORCO. SHE SLEPT GOOD T/O THE SHIFT. SHE ALSO USED THE BSC WITH 1 PERSON ASSIST. TOLERATING MOVEMENT WELL. SHE IS ALSO TOLERATING PO INTAKE DENIES NAUSEA AND VOMITING. LEFT FOOT HAS CAST AND JAIRO WRAP, CDI. PT USED 2L O2 AT NIGHT (BASELINE). DENIES CHEST PAIN AND SOB. CALL LIGHT WITHIN REACH. WILL PROVIDE REPORT TO ONCOMING NURSE.
--- NOTE | 2021-01-06 18:03 | NUR ---
SHIFT SUMMARY PATIENT ALERT AND ORIENTED THROUGHOUT SHIFT. TOLERATING REGULAR DIET AND FLUIDS. IV'S LEAKING AND DC'D. IV ABX CHANGED TO ORAL. OKAY TO LEAVE OUT IV'S. WOUND VAC AND DRESSING CHANGED THIS SHIFT BY DR MATIAS. PATIENT REPORTS SENSATION TO LEFT TOES. TOE MOVEMENT NOTED WELL. MULTIPLE BOWEL MOVEMENT THIS SHIFT. PAIN CONTROLLED WITH PO PAIN PILL. PLAN TO DISCHARGE TO SNF WHEN BED AVAILABLE AND INSURANCE APPROVAL OBTAINED.
--- NOTE | 2021-01-07 04:33 | NUR ---
SHIFT SUMMARY: PT POD#4 FOR A LEFT ANKLE I&D AND EXTERNAL FIXATION. PT A&O X4. VS WNL. ABLE TO WIGGLE TOES. CAP REFILL WNL. PT REPORTS NUMBNESS TO LEFT GREAT TOE. WOUND VAC COMPRESSED AND SUCTIONING SANGUINOUS DRG. STAND/PIVOT TO BSC AND CHAIR W/FWW. VOIDING WELL. PAIN BEING MANAGED WITH NORCO PER EMAR. AWAITING SNF PLACEMENT TO [facility].
--- NOTE | 2021-01-07 11:48 | NUR ---
PAIN PT IS CONTINING TO HAVE ELEVATED PAIN AT 9/10-10. PT HAS BEEN GIVEN NORCO AND FENTANYL FOR PAIN MANAGEMENT. PAIN IMPROVES BUT MEDICATION IS EFFECTIVE FOR ONLY SHORT PERIODS OF TIME. PT HAS BEEN ELEVATING HER LLE, PT ENCOURAGED TO CONTINUE. ICE PLACED TO HELP MANAGE PAIN. PT'S TOES TO THE LEFT FOOT PINK, WARM AND DRY. CAP REFIL WNL. PT ABLE TO WIGGLE HER TOES. NUMBNESS/TINGLING CONTINUES TO THE L GREAT TOE, PRESENT SINCE SURGERY. WILL CONTINUE TO MONITOR.
--- NOTE | 2021-01-07 16:41 | NUR ---
SHIFT SUMMARY PT IS POD#4 FROM L ANKLE I&D WITH EXTERNAL FIXATION. PT'S PAIN INCREASED THIS MORNING. PT REQUIRED IV FENATANYL X2 TO MANAGE PAIN. PO PAIN MEDICATION INCREASED AND PAIN APPEARS BETTER MANAGED THIS EVENING. LLE ELEVATED AND ICE APPLIED FOR COMFORT. PT REPORTS IMPROVED PAIN MANAGEMENT. PT IS A 1 PERSON ASSIST FOR TRANSFERS. PT IS TOLERATING PO. VSS. WILL MONITOR UNTIL REPORT TO RUMA RN.
--- NOTE | 2021-01-08 07:34 | NUR ---
SUMMARY PT REPORTS PAIN ADEQUATELY CONTROLLED. OOB FOR BSC WITH NWB LLE. CIRC CKS UNCHANGED. ANXIOUS FOR HOME
--- NOTE | 2021-01-08 19:21 | NUR ---
SHIFT SUMMARY PT IS POD#5 FROM L ANKLE I&D. PT IS ALERT AND ORIENTED. PAIN MANAGED WITH PO PAIN MEDICATION. INCREASED PAIN X1 TREATED WITH FENTANYL. ELEVATING LLE TO FLOAT PT'S HEAL ALSO HELPS TO RELIEVE PAIN. PT IS A 1 PERSON ASSIST FOR TRANSFERS. PLAN FOR POSSIBLE DC TO SNF TOMORROW. VSS. REPORT GIVEN TO RUMA MEADOWS.
--- NOTE | 2021-01-09 08:15 | NUR ---
SUMMARY PT REQUIRED IV PAIN MEDS FOR ADEQUATE CONTROL TONIGHT. DAY RN AGREES TO FOLLOW UP.
--- NOTE | 2021-01-09 11:16 | NUR ---
DRESSING CHANGED BY ORTHO PHYSICIAN. PT IS CLEARED BY ORTHO TO DC TO SNF WITH FOLLOW-UP ON SAT. ALSO OKAY'D TO TAKE INHALERS WITH HER AT DISCHARGE.
[2021-01-09 16:13] LABS: SARS-Cov-2 (COVID-19) PCR, MMC NEGATIVE (NEGATIVE)
--- NOTE | 2021-01-09 17:35 | NUR ---
SHIFT SUMMARY PT HAS BEEN A/O X4. SBA UP TO BSC USING WALKER TO MAINTAIN NWB ON L LEG. SHE HAS BEEN UP IN CHAIR MOST OF THE SHIFT. TOLERATING PO INTAKE AND VOIDING. DRESSING AND WOUND VAC CHANGED TODAY BY DR. MATIAS. PT IS PENDING DC TO [facility]; WAITING ON INSURANCE PER LOGGING EQUIPMENT MECHANIC. PAIN MANAGED WITH NORCO AND FENTANYL PRN FOR BREAKTHROUGH PAIN.
--- NOTE | 2021-01-10 06:12 | NUR ---
PT A/OX4. VSS ON 2L O2 WHEN ASLEEP. PAIN MANAGED WELL W/ NORCO AND 1X DOSE OF FENTANYL. PT DENIES CP, N/C. C/O YADAV, PER PT NOT NEW. UP TO BSC W/ FWW AND GAITBELT, NON WT BEARING TO L ANKLE. SLEEPING B/W CARE. USING CALL LIGHT TO MAKE NEEDS KNOWN.
--- NOTE | 2021-01-10 10:15 | NUR ---
PT TO DC AT 1115 PER COMPUTER ARTIST.
--- NOTE | 2021-01-10 10:34 | NUR ---
REPORT GIVEN TO CARMELITA BANEGAS RN
--- NOTE | 2021-01-10 11:19 | NUR ---
DISCHARGE PT A/O X4, SBA UP TO BS WITH FWW, MAINTAINING NWB LLE. PT DC'D TO [facility] AT 1100 WITH PERSONAL BELONGINGS AND DISCHARGE PACKET. WOUND VAC IN PLACE ALONG WITH EXTERNAL FIXATION. PT TO FOLLOW UP WITH DR MATIAS TOMORROW. PT HAS BEEN TOLERATING PO INTAKE, VOIDING, HAVING BM'S. PAIN MANAGED ON PO PAIN MEDS.
== END 2021-01-10 11:07 | DRG 493 ==
LOC: ER 11:29 → SURS 14:29
PROVIDERS: Family Medicine; Nurse Practitioner Acute Care; Orthopaedic Surgery; Physician Assistant; ADMIT Internal Medicine
PROC: 0QHH35Z Insertion of External Fixation Device into Left Tibia, Percutaneous Approach (ICD-10-PCS; principal; 2021-01-03 17:00)
DX: S82.852B Displaced trimalleolar fracture of left lower leg, initial encounter for open fracture type I or II (principal); E87.1 Hypo-osmolality and hyponatremia; L02.416 Cutaneous abscess of left lower limb; J44.9 Chronic obstructive pulmonary disease, unspecified; I10 Essential (primary) hypertension; J45.909 Unspecified asthma, uncomplicated; Z20.822 Contact with and (suspected) exposure to COVID-19; F32.9 Major depressive disorder, single episode, unspecified; E78.5 Hyperlipidemia, unspecified; G62.9 Polyneuropathy, unspecified; K21.9 Gastro-esophageal reflux disease without esophagitis; D47.3 Essential (hemorrhagic) thrombocythemia; E87.6 Hypokalemia; D64.9 Anemia, unspecified; T50.2X5A Adverse effect of carbonic-anhydrase inhibitors, benzothiadiazides and other diuretics, initial encounter; M19.90 Unspecified osteoarthritis, unspecified site; Z87.11 Personal history of peptic ulcer disease; B96.89 Other specified bacterial agents as the cause of diseases classified elsewhere; Z87.01 Personal history of pneumonia (recurrent); Z99.81 Dependence on supplemental oxygen; Z90.89 Acquired absence of other organs; Z90.710 Acquired absence of both cervix and uterus; Z98.890 Other specified postprocedural states; Z90.49 Acquired absence of other specified parts of digestive tract; Z95.828 Presence of other vascular implants and grafts; Z90.11 Acquired absence of right breast and nipple; Z79.899 Other long term (current) drug therapy; Z87.891 Personal history of nicotine dependence; Z85.3 Personal history of malignant neoplasm of breast; Z88.8 Allergy status to other drugs, medicaments and biological substances
CPT/HCPCS: 36415; 73610; 80048; 80053; 83036; 83605; 85025; 87070; 87075; 87205; 94640; 94760; 96365; 97110; 97162; 97166; 97530; 97535; 99285-25; A9270; C1713; J0690; J0696; J1100; J1170; J1650; J1885; J2405; J2704; J3010; J3480; J7030; J7120; U0004

== ENCOUNTER 2021-02-27 03:10 | Day surgery (SDC) | payer BC ==
[~2021-02-27 03:10] MED LIST changes: +ANASTROZOLE1 M4 PO; +BUDESONIDE0.5 MG/25 NEB; +OMEP20ER PO; +PRAVASTATIN SOD40 MG PO; +SPIRIVA RESPIMAT4 G3 INH; +ZANTAC-360 (FAM20 MG PO
== END 2021-02-27 23:06 | disposition home or self-care (01) ==
LOC: WOUND 03:10
DX: S82.852A Displaced trimalleolar fracture of left lower leg, initial encounter for closed fracture (principal); S82.852P Displaced trimalleolar fracture of left lower leg, subsequent encounter for closed fracture with malunion; J45.909 Unspecified asthma, uncomplicated; G47.30 Sleep apnea, unspecified; I10 Essential (primary) hypertension; X58.XXXD Exposure to other specified factors, subsequent encounter; Z88.8 Allergy status to other drugs, medicaments and biological substances; Z87.891 Personal history of nicotine dependence
CPT/HCPCS: A9270; G0463

== ENCOUNTER 2021-03-07 02:50 | Day surgery (SDC) | payer BC | END 2021-03-07 22:57 | disposition home or self-care (01) | LOC: WOUND 02:50 | DX: S82.852P Displaced trimalleolar fracture of left lower leg, subsequent encounter for closed fracture with malunion (principal); W06.XXXD Fall from bed, subsequent encounter; I10 Essential (primary) hypertension; Z88.8 Allergy status to other drugs, medicaments and biological substances | CPT/HCPCS: A9270; G0463 ==

== ENCOUNTER 2021-03-14 02:16 | Day surgery (SDC) | payer BC | END 2021-03-14 22:39 | disposition home or self-care (01) | LOC: WOUND 02:16 | DX: S82.852P Displaced trimalleolar fracture of left lower leg, subsequent encounter for closed fracture with malunion (principal); I10 Essential (primary) hypertension | CPT/HCPCS: G0463 ==

== ENCOUNTER 2021-05-29 06:59 | Day surgery (SDC) | payer BC ==
[~2021-05-29] VITALS: Ht 162.6 cm; Wt 82.7 kg
[2021-05-29] MEDS ORDERED: LOSA50 PO (07:40)
--- NOTE | 2021-05-29 08:24 | NUR ---
05/29/21 0824 Tanner Sharp DUONEB BEING GIVEN PER ANESTHESIA ORDERS AND TXA STARTED PER ORDERS AT BEDSIDE WITH PUMP.
--- NOTE | 2021-05-29 09:32 | NUR ---
05/29/21 0932 Markos Bowman 0.25MG EPI ADDED TO 50ML'S 0.5% MARCAINE MULTIDOSE VIAL TO ACHIEVE SOLUTION OF 0.5% MARCAINE WITH EPI 1:200,000. 0.25MG EPI VERIFIED BY ORSCJOSHUA AND ORSC.PARAM.
== END 2021-05-29 11:34 | disposition home or self-care (01) ==
LOC: ORSCSDS 06:59
PROVIDERS: Orthopaedic Surgery
PROC: 01S40ZZ Reposition Ulnar Nerve, Open Approach (ICD-10-PCS; principal; 2021-05-29 08:45)
DX: G56.21 Lesion of ulnar nerve, right upper limb (principal); I10 Essential (primary) hypertension; J44.9 Chronic obstructive pulmonary disease, unspecified; J45.909 Unspecified asthma, uncomplicated; E78.5 Hyperlipidemia, unspecified; Z87.891 Personal history of nicotine dependence; Z99.81 Dependence on supplemental oxygen; G62.9 Polyneuropathy, unspecified; Z79.899 Other long term (current) drug therapy
CPT/HCPCS: J0171; J0690; J1100; J1885; J2250; J2370; J2405; J2704; J3010; J7120

== ENCOUNTER 2021-07-09 08:50 | Inpatient (IN) | payer BC ==
[~2021-07-09] VITALS: Ht 162.6 cm; Wt 89.7 kg
[~2021-07-09 08:50] MED LIST changes: +FAMO20 PO; -OMEP20ER PO
[2021-07-09 09:58] LABS: BASOPHILS ABSOLUTE AUTO 0.04 K/mm3 (0.00-0.23); BASOPHILS PERCENT AUTO 0 % (0-2); EOSINOPHILS ABSOLUTE AUTO 0.03 K/mm3 (0.00-0.68); EOSINOPHILS PERCENT AUTO 0 % (0-6); Hemoglobin 14.7 g/dL (11.5-16.0); IMMATURE GRAN ABSOLUTE AUTO 0.02 K/mm3 (0.00-0.10); IMMATURE GRAN PERCENT AUTO 0 % (0-1); LYMPHOCYTES PERCENT AUTO 5 % (21-46); MONOCYTES ABSOLUTE AUTO 0.74 K/mm3 (0.16-1.47); MONOCYTES PERCENT AUTO 8 % (4-13); Mean Corpuscular HGB 32.7 pg (26.0-34.0); Mean Corpuscular HGB Conc 33.4 g/dL (31.5-36.5); Mean Corpuscular Volume 98 fL (80-100); Mean Platelet Volume 8.6 fL (9.1-12.4); NEUTROPHILS ABSOLUTE AUTO 7.68 K/mm3 (1.96-9.15); NEUTROPHILS PERCENT AUTO 86 % (41-73); Platelet Count 267 K/mm3 (150-400); RDW Coefficient Variation 13.4 % (11.7-14.2); RDW Standard Deviation 48.4 fL (35.1-46.3); White Blood Cell Count 8.91 K/mm3 (4.00-11.30)
[2021-07-09 10:19] LABS: Alanine Aminotransfer (ALT/SGP 25 U/L (12-78); Albumin, Blood 3.2 g/dL (3.4-5.0); Albumin/Globulin Ratio 0.8 (0.8-1.8); Alk Phos 81 U/L (50-136); Anion Gap 8 mmol/L (6-16); Aspartate Aminotrans (AST/SGOT 17 U/L (12-37); Bilirubin, Total 0.3 mg/dL (0.1-1.0); Blood Urea Nitrogen 9 mg/dL (8-24); Bun/Creatinine Ratio 16.3 (12.0-20.0); CO2, Blood 32 mmol/L (21-32); Calcium, Blood 8.9 mg/dL (8.5-10.1); Chloride, Blood 95 mmol/L (98-108); Creatinine, Blood 0.55 mg/dL (0.40-1.00); Globulin, Blood 3.8 g/dL (2.2-4.0); Glomerular Filtration Rate >60 (60-); Glucose, Blood 114 mg/dL (70-99); Potassium, Blood 3.8 mmol/L (3.5-5.5); Sodium, Blood 135 mmol/L (136-145); Troponin I <0.015 ng/mL (0.000-0.040)
[2021-07-09 10:34] LABS: Influenza A, PCR NEGATIVE (NEGATIVE); Influenza B, PCR NEGATIVE (NEGATIVE); Resp Syncytial Virus, PCR NEGATIVE (NEGATIVE); SARS-Cov-2 (COVID-19) PCR, MMC NEGATIVE (NEGATIVE)
[2021-07-09 11:58] LABS: PCO2 Arterial 49.8 mmHg (35-45); PO2 Arterial 120 mmHg (80-100); pH Blood Arterial 7.42 (7.35-7.45)
[2021-07-09] MEDS ORDERED: CELEXA40 M1 PO (18:26)
[2021-07-09] MEDS ORDERED: YUPELRI175 MCG/1 INH (18:27)
--- NOTE | 2021-07-10 05:24 | NUR ---
SHIFT SUMMARY: PATIENT A&O X4, PLEASANT AND COOPERATIVE WITH CARE. ENJOYS TELLING THE STAFF JOKES. SLEPT WITH BIPAP FOR 2-3 HOURS UNTIL LAB CAME. PATIENT USED BEDSIDE COMMODE AND THEN BECAME FRUSTRATED WITH BIPAP MASK AND REQUESTED TO "TAKE A BREAK FROM IT." O2 SATS WERE STABLE ON 3L O2 NC. PATIENT SLEEPING IN BED, WILL CONTINUE TO MONITOR AND REPORT TO DAY RN.
[2021-07-10 06:13] LABS: BASOPHILS ABSOLUTE AUTO 0.01 K/mm3 (0.00-0.23); BASOPHILS PERCENT AUTO 0 % (0-2); EOSINOPHILS PERCENT AUTO 0 % (0-6); Hematocrit 42.4 % (33.0-51.0); Hemoglobin 13.9 g/dL (11.5-16.0); IMMATURE GRAN ABSOLUTE AUTO 0.01 K/mm3 (0.00-0.10); IMMATURE GRAN PERCENT AUTO 0 % (0-1); LYMPHOCYTES ABSOLUTE AUTO 0.45 K/mm3 (0.84-5.20); LYMPHOCYTES PERCENT AUTO 10 % (21-46); MONOCYTES ABSOLUTE AUTO 0.18 K/mm3 (0.16-1.47); MONOCYTES PERCENT AUTO 4 % (4-13); Mean Corpuscular HGB 32.5 pg (26.0-34.0); Mean Corpuscular HGB Conc 32.8 g/dL (31.5-36.5); Mean Corpuscular Volume 99 fL (80-100); Mean Platelet Volume 9.1 fL (9.1-12.4); NEUTROPHILS ABSOLUTE AUTO 4.03 K/mm3 (1.96-9.15); NEUTROPHILS PERCENT AUTO 86 % (41-73); Platelet Count 256 K/mm3 (150-400); RDW Coefficient Variation 13.6 % (11.7-14.2); RDW Standard Deviation 49.1 fL (35.1-46.3); Red Blood Cell Count 4.28 M/mm3 (3.80-5.20); White Blood Cell Count 4.68 K/mm3 (4.00-11.30)
[2021-07-10 07:14] LABS: Alanine Aminotransfer (ALT/SGP 23 U/L (12-78); Albumin, Blood 3.1 g/dL (3.4-5.0); Alk Phos 72 U/L (50-136); Anion Gap 5 mmol/L (6-16); Aspartate Aminotrans (AST/SGOT 13 U/L (12-37); Bilirubin, Total 0.2 mg/dL (0.1-1.0); Blood Urea Nitrogen 16 mg/dL (8-24); Bun/Creatinine Ratio 30.2 (12.0-20.0); CO2, Blood 32 mmol/L (21-32); Calcium, Blood 8.8 mg/dL (8.5-10.1); Chloride, Blood 102 mmol/L (98-108); Creatinine, Blood 0.53 mg/dL (0.40-1.00); Glomerular Filtration Rate >60 (60-); Glucose, Blood 166 mg/dL (70-99); Magnesium, Blood 2.4 mg/dL (1.6-2.4); Sodium, Blood 139 mmol/L (136-145); Total Protein, Blood 6.1 g/dL (6.4-8.2)
--- NOTE | 2021-07-10 17:03 | NUR ---
SHIFT SUMMARY PT IS ALERT AND ORIENTED X 4. SHE TRANSFERED TO PCU 13 AT APPROX. 1400, SPO2 MAINTAINED IN UPPER 90'S VIA 2L NC. VITAL SIGNS STABLE. NO TELE. PT APPEARED FLUSHED BUT WAS AFEBRILE. RR WERE INCREASED TO UPPER 20'S AND PATIENT REPORTED FEELING OF NOT BEING ABLE TO TAKE A DEEP BREATH. THIS NURSE CONTACTED RESPIRATORY THERAPY. THIS NURSE ATTEMPTED TO PUT PT ON BIPAP TO EASE WORK OF BREATHING BUT PT SUDDENLY APPEARED AND REPORTED ANXIETY ABOUT GOING ON THE MASK. RESPIRATORY THERAPY CAME TO BEDSIDE AND PROVIDED BREATHING TREATMENT. PT HAS SINCE APPEARED TO HAVE DECREASED RR TO NORMAL PARAMETERS AND DOES NOT APPEAR ANXIOUS. CONSULTED ABOUT NEED FOR ANXIETY MEDICATION PRIOR TO BIPAP USE, ORDERS PUT IN EMAR. PT IS A SBA TO BEDSIDE COMMODE TO HELP MANAGE O2 TUBING. SHE WAS ORIENTED TO HER NEW ROOM AND CALL LIGHT HAS BEEN IN REACH. SHE DENIED FEELINGS OF PAIN. NO OTHER ACUTE CHANGES NOTED. WILL CONTINUE TO MONITOR UNTIL REPORT GIVEN.
--- NOTE | 2021-07-11 05:40 | NUR ---
SHIFT SUMMARY PATIENT ALERT AND ORIENTED X4. VSS. PATIENT ALTERNATED BETWEEN 2L NC AND BIPAP OVERNIGHT. BIPAP SETTINGS ARE 12/6/25% FIO2. O2 SATS ABOVE 90% T/O SHIFT. PATIENT REPORTS LESS ANXIETY WITH BIPAP ON OVERNIGHT. NO TELE. PATIENT DENIES CP. PATIENT IS A MINIMAL ASSIST TO BEDSIDE COMMODE. ABLE TO MAKE NEEDS KNOWN TO STAFFF AND USES CALL LIGHT APPROPRIATLEY. DENIES PAIN. NO OTHER SIGNIFICANT CHANGES TO PATIENT'S STATUS. WILL REPORT TO DAY SHIFT.
--- NOTE | 2021-07-11 08:20 | NUR ---
Rounded with Dr. Mendez. The pt is sitting up eating breakfast now. Use of accessory muscles noted with exertion, in no distress, but tachypneic at 18 breaths/ minute, belly breathing, while sitting up in bed. Lung sounds are wheezy thoughout. Pt received her scheduled breathing treatments this morning.
--- NOTE | 2021-07-11 08:50 | NUR ---
Call to RT Rafael to request breathing tx for wheezing. It has been 1.5 hours since her Duoneb this morning.
--- NOTE | 2021-07-11 10:07 | NUR ---
Completed ventolin treatment for wheezing.
--- NOTE | 2021-07-11 12:00 | NUR ---
Pt is dyspneic while attempting to eat. She is able to carry on conversation, but has to take a breath mid sentence. She is not in distress. Her anti anxiety medications are helping. She is on 2 l /min of oxygen delivery and SpO2 is 92-95%.
--- NOTE | 2021-07-11 17:08 | NUR ---
Pt is cheerful, conversant and appears much less dyspneic at rest than this morning. Demeanor is more relaxed and much decreased use of accessory muscles to breathe this afternoon. She was using the bipap for much of the afternoon, with a break while her friend was here. She is now back on the nasal cannula waiting for dinner. STates that she felt that the flow and pressure of the BIPap was really helpful to her work of breathing.
--- NOTE | 2021-07-11 18:11 | NUR ---
CIWA SCORE THIS AFTERNOON HAS REMAINED "0". Pt reports that her last drink was 3 weeks ago. States she occasionally drinks 3 shots of whiskey before bed, but only on occasion. Most of the time she reports that she takes"3 melatonin tablets" to help her sleep.
--- NOTE | 2021-07-11 18:26 | NUR ---
OOB to BSC independently. She is cheerful, conversant and cracking jokes with staff during activity. STates she is tired and hopes to go to sleep early this evening. Dyspnea noted with the activity.
--- NOTE | 2021-07-12 04:03 | NUR ---
SHIFT SUMMARY ADMITTED FOR COPD EXACERBATION. FULL CODE. PLAN IS TO SWITCH TO PO ANTIB RX, WEAN STEROIDS. PT TOLERATED BIPAP WELL THIS SHIFT. IV STEROIDS ARE SCHEDULED. Q4 CIWA SCORES HAVE BEEN ZERO. SHE IS A&O X4. SHE IS A STANDBY ASSIST TO BSC DUE TO LINES AND TUBES THIS SHIFT. SHE IS DYSPNEIC W/EXERTION. LUNGS ARE WHEEZY THROUGHOUT. SHE IS PLEASANT AND COOPERATIVE WITH CARE.
--- NOTE | 2021-07-12 07:38 | NUR ---
States that she slept ok last night, breathing feels better, but she is just not as rested as she felt yesterday morning.
--- NOTE | 2021-07-12 11:34 | NUR ---
Pt appeared dyspneic, tachypneic at rest. She agreed that she needed to go back on the bipap. NOw wearing the bipap, at previous settings, and appears much more comfortable.
--- NOTE | 2021-07-12 12:35 | NUR ---
Pt off of bipap for past 45 minutes for lunch, and tolerating it very well.
--- NOTE | 2021-07-13 04:32 | NUR ---
EXPERIENCE DESIGN DIRECTOR SUMMARY NO ACUTE CHANGES THIS SHIFT. PT AAOX4 AND PLEASANT. LUNG SOUNDS DIM IN BASES AND WHEEZY AT TIMES, PRN TREATMENTS BY RT. PT ON 2L O2 VIA NC DURING THE DAY AND BIPAP WHILE SLEEPING. VSS, WILL CONTINUE TO MONITOR.
[2021-07-13 08:28] LABS: BASOPHILS ABSOLUTE AUTO 0.02 K/mm3 (0.00-0.23); BASOPHILS PERCENT AUTO 0 % (0-2); EOSINOPHILS PERCENT AUTO 0 % (0-6); Hematocrit 44.7 % (33.0-51.0); Hemoglobin 14.4 g/dL (11.5-16.0); IMMATURE GRAN ABSOLUTE AUTO 0.07 K/mm3 (0.00-0.10); IMMATURE GRAN PERCENT AUTO 1 % (0-1); LYMPHOCYTES ABSOLUTE AUTO 0.54 K/mm3 (0.84-5.20); LYMPHOCYTES PERCENT AUTO 6 % (21-46); MONOCYTES ABSOLUTE AUTO 0.74 K/mm3 (0.16-1.47); MONOCYTES PERCENT AUTO 8 % (4-13); Mean Corpuscular HGB 32.7 pg (26.0-34.0); Mean Corpuscular HGB Conc 32.2 g/dL (31.5-36.5); Mean Corpuscular Volume 102 fL (80-100); Mean Platelet Volume 9.2 fL (9.1-12.4); NEUTROPHILS PERCENT AUTO 86 % (41-73); Platelet Count 266 K/mm3 (150-400); RDW Coefficient Variation 13.6 % (11.7-14.2); RDW Standard Deviation 51.3 fL (35.1-46.3); White Blood Cell Count 9.57 K/mm3 (4.00-11.30)
--- NOTE | 2021-07-13 10:13 | NUR ---
This morning Alysa states that she doesn't feel as well as she did yesterday. States that she is more tired, less energetic, and discouraged. Her lung sounds are not wheezy like they sounded yesterday; however, I am auscultating little air movement in the posterior bases. She is dyspneic with conversation, but cheerful, likes to carry on conversation and tell jokes. Able to move independently from the bed to chair to Bedside commode. Takes breaks in between activity to do pused lip breathing and catch her breath. Requesting bipap at this time to help her rest after this morning's activities.
--- NOTE | 2021-07-13 10:57 | NUR ---
Pt given anti-anxiety medication to help her relax and rest. She states she is ready to sleep.
--- NOTE | 2021-07-13 12:26 | NUR ---
Became quite dyspneic after eating lunch. She completed all of her lunch within 15 minutes of receiving the tray. She was unable to speak more than 2-3 words without stopping for a breath. Encouraged her to drink her coffee slowly. She states that she wants to go back on the bipap after finishing it. She was unhappily woken up for a blood draw late this morning, just after falling asleep. She would really like to get some rest this afternoon, she says.
--- NOTE | 2021-07-13 14:00 | NUR ---
Call to Dr. Marley regarding pt's dyspnea which is more significant after activities such as toileting, eating, and transfers as compared to yesterday. AT this time she is back on the bipap, with no changes to the settings. She is sitting up in bed, labored breathing with RR of 24-26/min. She appears to be mildly in distress and states, "I don't know what it is with today". She earlier had made comments that today she wasn't feeling as well as she had a couple of days ago. Dr. Marley stated that he would put in some new orders and come by and see the patient.
--- NOTE | 2021-07-13 14:17 | NUR ---
Dr. Marley here to see the patient. She is wearing the bipap at this time, appears slightly less labored in her work of breathing. She is able to carry on some conversation.
[2021-07-13 14:43] LABS: Base Excess Venous 10.6 mmol/L; Bicarbonate Venous 33.1 mmol/L (24.0-30.0); PCO2 Venous 44.3 mmHg (38-42); PO2 Venous 204 mmHg (38-42); pH Blood Venous 7.49 (7.34-7.37)
--- NOTE | 2021-07-13 15:21 | NUR ---
Brief break from bipap to toilet and take meds with water. Pt is tolerating break well.
--- NOTE | 2021-07-13 15:40 | NUR ---
Alysa is back on the bipap. STates very tired and would like to take a nap. Room was darkened to facilitate restful environment. She is tolerating the bipap.
--- NOTE | 2021-07-14 05:17 | NUR ---
SHIFT SUMMARY PT A&OX4. SP02>92% ON 2L NC OR BIPAP 06/05, 25% FI02 AT NOC. PT OCCASIONALLY AUDIBLY WHEEZING. PRN BREATHING TREATMENTS. SOB W/ EXERTION, LABORED BREATHING NOTED. MEDICAL STATUS, NO TELE. VSS. PT UP TO BSC INDEPENDENTLY TO VOID. PT C/O OF 10/08 HEADACHE THIS AM. TYLENOL GIVEN PER EMAR WITH SOME RELIEF. PT SLEPT OFF AND ON DURING NIGHT. CALL LIGHT IN REACH.
--- NOTE | 2021-07-14 18:13 | NUR ---
SHIFT NOTE PT HAS BEEN ON BIPAP MOST OF THE DAY, PT IS UNABLE TO TOLERATE LONG PERIODS ON NASAL CANNULA ALONE. PT IS A/O X3, SHE IS FORGERTFUL THOUGH AT TIMES, SHE WILL REPEAT HER QUESTIONS AND OCCASIONALLY FORGETS THE ANSWERS PROVIDED TO HER. IT IS ALSO NOTED THAT PT REPORTS THAT SHE DRANK 750ML OF UNSPECIFIED ALCOHOL A DAY PRIOR TO ADMISSION, PT IS DAY 6 OF ADMISSION BUT MONITORING FOR SIGNS OF WITHDRAWL. VSS. SHE IS RECIEVING NEB TREATMENTS VIA RT BY BIPAP.
[2021-07-15 05:00] LABS: PCO2 Arterial 54.5 mmHg (35-45); PO2 Arterial 87.6 mmHg (80-100); pH Blood Arterial 7.46 (7.35-7.45)
--- NOTE | 2021-07-15 05:00 | NUR ---
SHIFT SUMMARY NO ACUTE CHANGES THIS SHIFT. VSS. SLEEP STUDY IN SESSION FOR MAJORITY OF SHIFT. SPO2 ON BLUTOOTH >90%. PT REMAINS ON 2LNC. PT HAS BEEN RESTING FOR MAJORITY OF SHIFT IS IMPORTANT FOR THE SLEEP STUDY. OTHERWISE, PT HAS BEEN RESTING ON AND OFF IN THE ROOM. BED ALARM IN PLAC.
--- NOTE | 2021-07-15 13:23 | NUR ---
66 year old female admitted to the hospital for COPD Exacerbation. Pt's medical history and comorbidities include: COPD, HTN, Hyperlipidemia, GERD, Breast Cancer, Peripheral Neuropathy, Alcoholism, and now Pulmonary HTN. Pt resting on edge of bed and on BIPAP. Pt is A&OX4 and denies pain at this time. RT at bedside providing breathing teatment and education. Pt appears dyspneic as evidenced by work of breathing and ability to speak with only 2 to 3 word sentences before needing to catch her breath. Discussed plan for Pt to receive trilogy for home use once D/C from the hospital. Pt appears moderately anxious as well. Gentle education on disease process including trajectory. Discussed the importance of routine conversation with PCP and developing a plan with PCP based off of her goals and values as her disease progresses. Pt appears to struggle with understanding and acceptance of her new normal. Gentle education re-enforcement provided. Listened as Pt reports having family but all live out of state. Pt reports living alone. Listened as Pt expresses concerns of inability to pay for caregivers and struggles with paying for medical bills and prescriptions. Offered suggestions and instructed Social Service consult will be placed to assist with providing community resources. Continued therapeutic listening. Pt expresses appreciation and reports no other concerns at this time. PPS 50% Pt high risk for readmission Social Service Consult placed. Palliative Care will remain available.
--- NOTE | 2021-07-15 18:22 | NUR ---
SHIFT SUMMARY; ASSUMED CARE AT 0700, A/A/OX4. INDEPENDANT TO BSC DURING SHIFT. INTERMITANT BIPAP DURING SHIFT. 4L 02 NC. DESATS TO 80'S WITH EXERTION. VSS, NO ACUTE CHANGES, WILL CONTINUE TO MONITOR AND TREAT UNTIL CHANGE OF SHIFT.
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
[2021-07-16 04:18] LABS: BASOPHILS ABSOLUTE AUTO 0.01 K/mm3 (0.00-0.23); BASOPHILS PERCENT AUTO 0 % (0-2); EOSINOPHILS PERCENT AUTO 0 % (0-6); Hematocrit 42.4 % (33.0-51.0); Hemoglobin 13.9 g/dL (11.5-16.0); IMMATURE GRAN ABSOLUTE AUTO 0.14 K/mm3 (0.00-0.10); IMMATURE GRAN PERCENT AUTO 1 % (0-1); LYMPHOCYTES ABSOLUTE AUTO 0.21 K/mm3 (0.84-5.20); LYMPHOCYTES PERCENT AUTO 2 % (21-46); MONOCYTES ABSOLUTE AUTO 0.48 K/mm3 (0.16-1.47); MONOCYTES PERCENT AUTO 4 % (4-13); Mean Corpuscular HGB 33.1 pg (26.0-34.0); Mean Corpuscular HGB Conc 32.8 g/dL (31.5-36.5); Mean Corpuscular Volume 101 fL (80-100); Mean Platelet Volume 9.2 fL (9.1-12.4); NEUTROPHILS ABSOLUTE AUTO 12.64 K/mm3 (1.96-9.15); NEUTROPHILS PERCENT AUTO 94 % (41-73); Platelet Count 256 K/mm3 (150-400); RDW Coefficient Variation 13.2 % (11.7-14.2); RDW Standard Deviation 49.2 fL (35.1-46.3); White Blood Cell Count 13.48 K/mm3 (4.00-11.30)
[2021-07-16 05:24] LABS: Anion Gap 7 mmol/L (6-16); Blood Urea Nitrogen 28 mg/dL (8-24); Bun/Creatinine Ratio 37.5 (12.0-20.0); CO2, Blood 35 mmol/L (21-32); Calcium, Blood 8.8 mg/dL (8.5-10.1); Chloride, Blood 93 mmol/L (98-108); Creatinine, Blood 0.75 mg/dL (0.40-1.00); Glomerular Filtration Rate >60 (60-); Glucose, Blood 356 mg/dL (70-99); Potassium, Blood 4.6 mmol/L (3.5-5.5); Sodium, Blood 135 mmol/L (136-145)
--- NOTE | 2021-07-16 06:20 | NUR ---
CALLED DR. LARSEN AND NOTIFIED HER THAT PATIENT'S GLUCOSE ON AM LABS WAS 356. ORDERS RECEIVED FOR CBGS ACHS, HUMALOG MEDIUM SLIDING SCALE TID WITH MEALS, AND HBA1C LEVEL OK TO ADD ON TO AM LABS.
--- NOTE | 2021-07-16 07:28 | NUR ---
SHIFT SUMMARY: LANG A/OX3. ON 1L O2 VIA NC. WORE BIPAP FOR MOST OF THE NIGHT, TOLERATED WELL. REPORTED THAT SHE FELT LIKE SHE HAD INDIGESTION BUT DENIED NEED FOR MEDICATION. ELEVATED CBG, NOTIFIED, CBGS ACHS AND HUMALOG MEDIUM SLIDING SCALE COVERAGE ORDERED. REPORT GIVEN TO ONCOMING RN.
--- NOTE | 2021-07-16 19:18 | NUR ---
SHIFT SUMMARY PT IS ALERT AND ORIENTED X 4, SHE REPORTS ANXIETY PRIOR TO BIPAP MASK PLACEMENT. PT DENIED FEELING OF CHEST PAIN/PRESSURE DURING SHIFT. SPO2 MAINTAINED IN UPPER 90'S VIA 1 L NC OR WHEN SLEEPING BIPAP. RESPIRATIONS APPEARED SHALLOW AND TACHYPNIC T/O SHIFT. ONE TEMPORAL TEMPERATURE THIS AFTERNOON WAS 99 BUT PT REMAINED AFEBRILE, SHE DID APPEAR FLUSHED. THIS AFTERNOON CBG WAS 442, DR OSORIO MADE AWARE. SHE IS INDEPENDENT TO BEDSIDE COMMODE. IV IN LEFT FOREARM IS SALINE LOCKED. NO ACUTE CHANGES NOTED. REPORT GIVEN TO DELMAR MEADOWS.
--- NOTE | 2021-07-17 05:39 | NUR ---
SHIFT SUMMARY NO ACUTE EVENTS THIS SHIFT. ALERT AND ORIENTED X4. PT ON 1-2L NC MAINTAINING SATS OVER 95%. HR 60'S-80'S. ON BIPAP WHILE SLEPEING. ATARAX GIVEN FOR ANXIETY RELATED TO BIPAP. BP HIGH THIS MORNING. HYDRALAZINE GIVEN. PT C/O CONSTIPATION. HAS ATTEMPTED TO GO MULTIPLE TIMES THIS EVENING. SUPPOSITORY GIVEN PER EMAR. IN BED AWAKE WITH CALL ALARM AT SIDE. WILL CONTINUE TO MONITOR UNTIL REPORT GIVEN TO DAYSHIFT RN
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
--- NOTE | 2021-07-17 13:42 | NUR ---
Pt complaining of SOB at rest and worse with excertion. Oxygen saturations 94-98% on 2L. Pt tried to nap with CPAP on and did not tolerate if for very long. VSS, RR 25-30.
--- NOTE | 2021-07-17 15:48 | NUR ---
Shift Note: Pt is A&O, pleasant with cares. Anxious on and off, prn hydroxazine given per AUG. VSS on 2L and CPAP NOC/PRN. None productive cough. Pt reports SOB at rest and especially when moving around. RR 22-30. IV solumedrol given. RT administed breathing tx. Up ind to BSC and chair. Order placed for VBGs in AM.
[2021-07-18 03:50] LABS: Base Excess Venous 16.5 mmol/L; PCO2 Venous 40.5 mmHg (38-42); PO2 Venous 103 mmHg (38-42)
[2021-07-18 03:51] LABS: pH Blood Venous 7.59 (7.34-7.37)
[2021-07-18 04:16] LABS: BASOPHILS ABSOLUTE AUTO 0.02 K/mm3 (0.00-0.23); BASOPHILS PERCENT AUTO 0 % (0-2); EOSINOPHILS PERCENT AUTO 0 % (0-6); Hemoglobin 13.3 g/dL (11.5-16.0); IMMATURE GRAN ABSOLUTE AUTO 0.18 K/mm3 (0.00-0.10); IMMATURE GRAN PERCENT AUTO 1 % (0-1); LYMPHOCYTES ABSOLUTE AUTO 0.16 K/mm3 (0.84-5.20); LYMPHOCYTES PERCENT AUTO 1 % (21-46); MONOCYTES ABSOLUTE AUTO 0.57 K/mm3 (0.16-1.47); MONOCYTES PERCENT AUTO 4 % (4-13); Mean Corpuscular HGB 32.5 pg (26.0-34.0); Mean Corpuscular HGB Conc 33.3 g/dL (31.5-36.5); Mean Corpuscular Volume 98 fL (80-100); Mean Platelet Volume 9.2 fL (9.1-12.4); NEUTROPHILS ABSOLUTE AUTO 12.57 K/mm3 (1.96-9.15); NEUTROPHILS PERCENT AUTO 93 % (41-73); Platelet Count 276 K/mm3 (150-400); RDW Coefficient Variation 13.3 % (11.7-14.2); Red Blood Cell Count 4.09 M/mm3 (3.80-5.20)
[2021-07-18 04:48] LABS: Albumin, Blood 2.5 g/dL (3.4-5.0); Anion Gap 5 mmol/L (6-16); Blood Urea Nitrogen 29 mg/dL (8-24); Bun/Creatinine Ratio 43.7 (12.0-20.0); CO2, Blood 34 mmol/L (21-32); Calcium, Blood 8.2 mg/dL (8.5-10.1); Chloride, Blood 95 mmol/L (98-108); Creatinine, Blood 0.66 mg/dL (0.40-1.00); Glomerular Filtration Rate >60 (60-); Glucose, Blood 264 mg/dL (70-99); Phosphorus, Blood 3.4 mg/dL (2.5-4.9); Potassium, Blood 4.4 mmol/L (3.5-5.5); Sodium, Blood 134 mmol/L (136-145)
--- NOTE | 2021-07-18 05:45 | NUR ---
SHIFT SUMMARY ASSUMED CARE OF PT AT 1900. PT IS A/OX4. HEART SOUNDS REGULAR. LUNG SOUNDS DIMINISHED, PT WORE BIPAP T/O THE NIGHT. PT HAD A CRITICAL PH VALUE, RT SAID TO TAKE OFF PT BIPAP AND WORE 2L NC T/O THE REST OF THE MORNING. PT HAS DIFFICULTY CATCHING HER BREEATH WITH ACTIVITY. PT SLEPT T/O THE NIGHT. CALL LIGHT IN REACH, BED IN LOWEST POSITION.
[2021-07-18 11:00] LABS: Base Excess Venous 12.4 mmol/L; Bicarbonate Venous 34.6 mmol/L (24.0-30.0); PCO2 Venous 46.1 mmHg (38-42); PO2 Venous 109 mmHg (38-42)
--- NOTE | 2021-07-18 11:51 | NUR ---
Spiritual care visit conducted. Patient is sitting on EOB and alert. Patient tells me about her medical progress and that she may DC today. Patient is grateful for the quality of care she has received and expresses that her emotional/spiritual tank is full. We celebrate the improvement and I bless her and her life moving forward. I will continue to remain available.
--- NOTE | 2021-07-18 17:41 | NUR ---
SHIFT SUMMARY PT HAS BEEN UP IN ROOM INDEPENDENTLY. PT C/O ANXIETY R/T CURRENT ILLNESS. PT EDUCATION PROVIDED MODERATE RELIEF TO ANXIETY AND PT REQUESTED PRN MEDICATION. ALL VITAL SIGNS STABLE THROUGHOUT DAY. PT HAS HAD EPISODES OF INCREASED WORK OF BREATHING WHILE AT REST. PT HAS HAD PRODUCTIVE COUGH WITH THICK SECRETIONS, ACAPELLA DEVICE GIVEN TO PATIENT. PT HAS DENIED C/O PAIN AND DISCOMFORT.
[2021-07-19 03:35] LABS: Base Excess Venous 13.3 mmol/L; Bicarbonate Venous 34.4 mmol/L (24.0-30.0); PCO2 Venous 56.2 mmHg (38-42); PO2 Venous 48.5 mmHg (38-42); pH Blood Venous 7.43 (7.34-7.37)
[2021-07-19 04:42] LABS: Albumin, Blood 2.6 g/dL (3.4-5.0); Anion Gap 7 mmol/L (6-16); Blood Urea Nitrogen 26 mg/dL (8-24); Bun/Creatinine Ratio 41.1 (12.0-20.0); CO2, Blood 33 mmol/L (21-32); Chloride, Blood 94 mmol/L (98-108); Creatinine, Blood 0.63 mg/dL (0.40-1.00); Glomerular Filtration Rate >60 (60-); Glucose, Blood 351 mg/dL (70-99); Potassium, Blood 4.3 mmol/L (3.5-5.5); Sodium, Blood 134 mmol/L (136-145)
--- NOTE | 2021-07-19 06:17 | NUR ---
SHIFT SUMMARY ASSUMED CARE OF PT AT 1900. PT IS A/OX4. HEART SOUNDS REGULAR. LUNG SOUNDS DIMINISHED. PT REMAINED ON NC T/O THE NIGHT. PT COMPLAINED OF NOT BEING ABLE TO SLEEP WELL BEUCASE OF THIS. PT GIVEN PRN ANXIETY MEDICATION TO HELP WITH THIS WITH NO REGULT. PT STILL C/O SOB WITH ACTIVITY. PT IS INDEPENDENT TO BSC. CALL LIGHT IN REACH, BED IN LOWEST POSTION.
--- NOTE | 2021-07-19 14:48 | NUR ---
Patient immediately tells me that she has continues to struggle with depression. We then talk about practices and activities that can help her stay uplifted emotionally/spirituallly. We explore ways to focus on what is good and what she is thankful for as well as avoiding a steady stream of negative news. We discuss a healthy spiritual care paln for when she will DC. I reinforce helpful attitudes and practices as well as provide spiritual guidance and prayer. Patient responds well and displays evidence of an elevated mood. I will continue to remain available.
--- NOTE | 2021-07-19 17:38 | NUR ---
SHIFT SUMMARY; ASSUMED CARE AT 0700. A/A/OX4. UP TO BEDSIDE COMMODE INDEPENDANTLY, REPOSITIONS SELF IN BED NEEDED. 2L O2 VIA NC, VSS, PLEASANT AND COOPERATIVE WITH CARE, NO ACUTE MEDICAL CHANGES, WILL CONTINUE TO MONITOR AND TREAT UNTIL CHANGE OF SHIFT.
--- NOTE | 2021-07-20 01:01 | NUR ---
ASSUMED CARE OF PT AT 1900. A/OX4. MAINTAINS ABOVE 95% ON RA WI8TH OCCASIONAL 2LNC USED. BIPAP FOR SLEEP. LS DIM T/O. OCCASIONAL PRODUCTIVE COUGH PER PT, UNABLE TO TELL ME COLOR OF SPUTUM. VSS. 1+ BLE PITTING EDEMA. PATIENT IS INDEPENDENT TO BSC. REPORTS NO PAIN, CP/PRESSURE. WILL UPDATE CHANGES OCCUR
[2021-07-20 04:01] LABS: Base Excess Venous 5.8 mmol/L; Bicarbonate Venous 28.5 mmol/L (24.0-30.0); PCO2 Venous 47.7 mmHg (38-42); PO2 Venous 61.4 mmHg (38-42); pH Blood Venous 7.41 (7.34-7.37)
[2021-07-20 04:44] LABS: Anion Gap 9 mmol/L (6-16); Blood Urea Nitrogen 30 mg/dL (8-24); Bun/Creatinine Ratio 40.1 (12.0-20.0); CO2, Blood 29 mmol/L (21-32); Calcium, Blood 8.2 mg/dL (8.5-10.1); Chloride, Blood 98 mmol/L (98-108); Creatinine, Blood 0.75 mg/dL (0.40-1.00); Glomerular Filtration Rate >60 (60-); Glucose, Blood 293 mg/dL (70-99); Potassium, Blood 3.8 mmol/L (3.5-5.5); Sodium, Blood 136 mmol/L (136-145)
--- NOTE | 2021-07-20 17:10 | NUR ---
SHIFT SUMMARY; ASSUMED CARE AT 0700, A/A/OX4 DURING SHIFT. 2L 02 VIA NC, INTERMITANTLY ON ROOM AIR PER PT OK BY DOCTOR. WORKED WITH PHYSICAL THERAPY TODAY, HOME O2 EVAL COMPLETED. ORDERS FOR HOME TRILIGY SENT TO [facility]. PT PLAN TO DC TOMORROW. VSS, INSULIN PER EMAR. WILL CONTINUE TO MONITOR AND TREAT UNTIL CHANGE OF SHIFT.
--- NOTE | 2021-07-20 23:26 | NUR ---
PT TRANSFER PT TRANSFERED FROM [address] [facility] F[facility] 327. PT WAS EDUCATED ABOUT MOVE AND REPONDED TO MOVE WELL. REPORT GIVEN TO MIKE MEADOWS. PT TAKEN VIA WHEELCHAIR. CALL LIGHT IN REACH, BED IN LOWEST POSITION.
--- NOTE | 2021-07-21 07:46 | NUR ---
Jean HAD A GOOD REST AFTER GETTING TO HER NEW ROOM, i AGREE WITH ASSESSMENT OF [employer]AT MAKER COMPLETED YESTERDAY EVENING PRIOR TO COMING TO ROOM 327. Jean IS A&OX4, MOVES INDEPENDENTLY FROM BED TO BEDSIDE COMMODE AND BACK. SHE SLEPT WELL WITH TRILOGY IN PLACE OVERNIGHT. HOPING FOR DISCHARGE EARLY TODAY.
[2021-07-21] MEDS ORDERED: PRED20 (10:26)
[2021-07-21] MEDS ORDERED: PRED20 PO (10:27)
--- NOTE | 2021-07-21 11:15 | NUR ---
Patient was alert and orient, she was xferred from PCU last evening and now discharged to home. She was excited to go home. RN reviewed with patient her discharge instructions, her medicaiton list, and answered any questions that may have arose. Patient was assited off of the unit by staff at [id number] and her friend will transport her home.
== END 2021-07-21 11:20 | disposition home or self-care (01) | DRG 189 ==
LOC: ER 08:50 → PCU 15:14 → ERHOLD 15:14 → PCU 18:05 → MEDS 07-20 23:20
PROVIDERS: Emergency Medicine; Family Medicine; Internal Medicine; Internal Medicine Critical Care Medicine; Nurse Practitioner Acute Care; Student in an Organized Health Care Education/Training Program; ADMIT Internal Medicine
PROC: 5A09557 Assistance with Respiratory Ventilation, Greater than 96 Consecutive Hours, Continuous Positive Airway Pressure (ICD-10-PCS; principal; 2021-07-09)
DX: J96.21 Acute and chronic respiratory failure with hypoxia (principal); J44.1 Chronic obstructive pulmonary disease with (acute) exacerbation; Z20.822 Contact with and (suspected) exposure to COVID-19; J96.22 Acute and chronic respiratory failure with hypercapnia; K59.00 Constipation, unspecified; R51.9 Headache, unspecified; F10.20 Alcohol dependence, uncomplicated; R73.9 Hyperglycemia, unspecified; T38.0X5A Adverse effect of glucocorticoids and synthetic analogues, initial encounter; I27.20 Pulmonary hypertension, unspecified; G62.9 Polyneuropathy, unspecified; I10 Essential (primary) hypertension; E78.5 Hyperlipidemia, unspecified; K21.9 Gastro-esophageal reflux disease without esophagitis; F41.8 Other specified anxiety disorders; F17.210 Nicotine dependence, cigarettes, uncomplicated; Z88.8 Allergy status to other drugs, medicaments and biological substances; Z79.899 Other long term (current) drug therapy; Z90.89 Acquired absence of other organs; Z98.890 Other specified postprocedural states; Z90.49 Acquired absence of other specified parts of digestive tract; Z90.710 Acquired absence of both cervix and uterus; Z85.3 Personal history of malignant neoplasm of breast; Z99.81 Dependence on supplemental oxygen; Z90.11 Acquired absence of right breast and nipple
CPT/HCPCS: 0241U; 36415; 36600; 71045; 80048; 80053; 80069; 82803; 82947; 83036; 83735; 83880; 84145; 84484; 85025; 93005; 93010; 94640; 94644; 94660; 94664; 94667; 94761; 94762; 96374; 96375; 97110; 97116; 97162; 97165; 97530; 98960; 99285-25; 99406; A9270; J0360; J0456; J1650; J2930; J7030; J7050